=== PATIENT | male | born 1950 | race Caucasian/White ===

== ENCOUNTER 2021-08-08 20:44 | Outpatient (RCR) | payer MEDICARE, SELFPAY | END 2021-12-15 14:49 | disposition home or self-care (01) | LOC: MOW 20:44 | PROVIDERS: PCP Family Medicine; Visit Provider Family Medicine | DX: Z76.0 Encounter for issue of repeat prescription (principal) | CPT/HCPCS: S5170 ==

== ENCOUNTER 2021-09-01 14:15 | Outpatient (RCR) | payer MEDICARE, SELFPAY | END 2021-12-08 23:59 | disposition home or self-care (01) | PROVIDERS: PCP Family Medicine; Visit Provider Family Medicine | DX: R53.1 Weakness (principal); Z51.89 Encounter for other specified aftercare | CPT/HCPCS: 97165 ==

== ENCOUNTER 2021-09-27 10:07 | Outpatient (CLI) | payer MEDICARE, SELFPAY ==
--- NOTE | 2021-09-27 10:15 | CRLHL7_ITS ---
For Patients: As a result of the Century Cures Act, medical imaging exams and procedure reports are released immediately into your electronic medical record. You may view this report before your referring provider. If you have questions, please contact your health care provider. INDICATION: Dysphagia TECHNIQUE: Modified barium swallow. Fluoroscopic time 1 minutes 40 seconds. COMPARISON: None FINDINGS/IMPRESSION: Inability to drink from a cup. Through a straw, there was persistent laryngeal penetration with different thicknesses of barium. No aspiration. No obstruction. Dictated by Eber Brewer MD @ 09/27/2021 11:28:09 AM (Electronically Signed)
== END 2021-09-27 10:08 | disposition home or self-care (01) ==
LOC: RAD 10:09
PROVIDERS: PCP Student in an Organized Health Care Education/Training Program; Visit Provider Student in an Organized Health Care Education/Training Program
DX: R13.10 Dysphagia, unspecified (principal)
CPT/HCPCS: 74230; 92611

== ENCOUNTER 2021-12-08 18:06 | Outpatient (CLI) | payer MEDICARE, SELFPAY | END 2021-12-08 18:07 | disposition home or self-care (01) | LOC: AMB 01-15 19:35 | PROVIDERS: Visit Provider Family Medicine | DX: Y93.11 Activity, swimming; Y92.34 Swimming pool (public) as the place of occurrence of the external cause | CPT/HCPCS: A0429 ==